=== PATIENT | male | born 1970 ===

== ENCOUNTER 2021-04-25 20:43 | Emergency (ER) | payer SELFPAY ==
[2021-04-25 22:46] VITALS: BP 133/52
[2021-04-25] MEDS ORDERED: ACETAMINOPHEN 325 MG TAB PO ONE (22:50)
[2021-04-25 23:38] LABS: Bacteria,Urine 1+ /HPF (Negative); Bilirubin,Urine NEG (Negative); Blood,Urine SM (Negative); Color,Urine Yellow (Yellow); Mucus,Urine FEW /HPF; Protein,Urine <15 mg/dL mg/dL (Negative); Urobilinogen,Urine < 2.0 mg/dL (<2.0)
[2021-04-25 23:57] LABS: Hematocrit 32.7 % (35.5-45.6); Hemoglobin 10.8 gm/dl (11.8-15.2); Mean Corpuscular HGB Conc 33 % (32-34); Mean Corpuscular Volume 76 fl (84-94); Platelet Count 196 K/mm3 (140-440); Red Blood Count 4.29 M/mm3 (3.65-5.03); Red Cell Distribution Width 16.7 % (13.2-15.2)
[2021-04-26 00:19] LABS: Alanine Aminotransferase 28 units/L (7-56); Albumin 4.1 g/dL (3.9-5); BUN/Creatinine Ratio 21; Blood Urea Nitrogen 21 mg/dL (9-20); Calcium 8.8 mg/dL (8.4-10.2); Hemolysis Index 0
[2021-04-26 04:45] LABS: Anisocytosis 1+; Platelet Estimate Consistent w Auto; Total Cells Counted 100
[2021-04-26] MEDS ORDERED: ALBUTEROL 2.5 MG/3 ML NEBU IH ONE (04:52)
[2021-04-26] MEDS ORDERED: methylPREDNISolone Sod Succinate 125 MG/2 ML INJ IM ONE (04:52)
[2021-04-26] MEDS ORDERED: IPRATROPIUM 0.02% NEBU 2.5 ML IH ONE (04:52)
[2021-04-26] MEDS ORDERED: KETOROLAC 60 MG/2 ML INJ IM ONE (04:53)
--- NOTE | 2021-04-26 05:42 | Emergency Department Report ---
ED General Adult HPI - General Chief complaint: Abdominal Pain Stated complaint: FOOD POSION ABOUT TO PASS OUT Source: patient Mode of arrival: Wheelchair Limitations: No Limitations - History of Present Illness Initial comments: Patient is a 51-year-old -[place] male with a history of morbid obesity, chronic low back pain, hypertension and asthma who presents to the ED with complaint of acute onset persistent diffuse body aches and pains, nasal and sinus congestion, persistent dry cough with wheezing and shortness of breath for the last 2 days. Patient states that he just returned from a trip in [place] and despite using his albuterol inhaler his wheezing and shortness of breath and persistent cough got worse. Patient also states that he noticed that he had hematuria, urinary frequency and urgency and dysuria 24 hours ago and wanted to be evaluated for the same as well. Patient states that he has not been contact with anyone with similar symptoms. Patient denies chest pain, abdominal pain, testicular pain, back pain, fever, chills, nausea and vomiting, diarrhea, dizziness, headache or sore throat. MD Complaint: Shortness of breath, wheezing, asthma exacerbation -: Sudden Severity scale (0 -10): 3 - Related Data Previous Rx's Medication Instructions Recorded Last Taken Type Benzonatate [Tessalon Perles] 100 mg PO Q8HR #30 capsule 04/26/21 Unknown Rx Cetirizine HCl [Zyrtec 10mg tab] 10 mg PO DAILY #30 tablet 04/26/21 Unknown Rx Doxycycline Hyclate 100 mg PO Q12H #28 tablet.dr 04/26/21 Unknown Rx Ibuprofen [Motrin] 800 mg PO Q8HR PRN #30 tablet 04/26/21 Unknown Rx Phenazopyridine [Pyridium] 200 mg PO TID #21 tab 04/26/21 Unknown Rx methylPREDNISolone [Medrol 4MG 4 mg PO DAILY #21 tab.ds.pk 04/26/21 Unknown Rx DOSEPAK (21 tabs)] Allergies Allergy/AdvReac Type Severity Reaction Status Date / Time No Known Allergies Allergy Verified 04/26/21 04:55 ED Review of Systems ROS: Stated complaint: FOOD POSION ABOUT TO PASS OUT Other details as noted in HPI Constitutional: chills, fever, malaise Eyes: denies: eye pain, eye discharge, vision change ENT: congestion. denies: ear pain, throat pain Respiratory: cough, shortness of breath, wheezing Cardiovascular: denies: chest pain, palpitations Endocrine: no symptoms reported Gastrointestinal: denies: abdominal pain, nausea, diarrhea Genitourinary: urgency, dysuria, frequency Musculoskeletal: arthralgia, myalgia. denies: back pain, joint swelling Skin: denies: rash, lesions Neurological: headache. denies: weakness, paresthesias Psychiatric: denies: anxiety, depression Hematological/Lymphatic: denies: easy bleeding, easy bruising ED Past Medical Hx - Past Medical History Previous Medical History?: Yes Hx Hypertension: Yes Hx Asthma: Yes - Surgical History Past Surgical History?: No - Social History Smoking Status: Never Smoker Substance Use Type: None - Medications Home Medications: Home Medications Medication Instructions Recorded Confirmed Last Taken Type Benzonatate [Tessalon Perles] 100 mg PO Q8HR #30 capsule 04/26/21 Unknown Rx Cetirizine HCl [Zyrtec 10mg tab] 10 mg PO DAILY #30 tablet 04/26/21 Unknown Rx Doxycycline Hyclate 100 mg PO Q12H #28 tablet.dr 04/26/21 Unknown Rx Ibuprofen [Motrin] 800 mg PO Q8HR PRN #30 tablet 04/26/21 Unknown Rx Phenazopyridine [Pyridium] 200 mg PO TID #21 tab 04/26/21 Unknown Rx methylPREDNISolone [Medrol 4MG 4 mg PO DAILY #21 tab.ds.pk 04/26/21 Unknown Rx DOSEPAK (21 tabs)] ED Physical Exam - General Limitations: No Limitations General appearance: alert, in no apparent distress - Head Head exam: Present: atraumatic, normocephalic, normal inspection - Eye Eye exam: Present: normal appearance, PERRL, EOMI Pupils: Present: normal accommodation - ENT ENT exam: Present: normal orophraynx, mucous membranes moist, other (Grossly congested nasal passages; palpable frontal sinus tenderness) - Neck Neck exam: Present: normal inspection, full ROM - Respiratory Respiratory exam: Present: normal lung sounds bilaterally. Absent: respiratory distress, wheezes, rales, rhonchi, chest wall tenderness, accessory muscle use, decreased breath sounds, prolonged expiratory - Cardiovascular Cardiovascular Exam: Present: regular rate, normal rhythm, normal heart sounds. Absent: systolic murmur, diastolic murmur, rubs, gallop - GI/Abdominal GI/Abdominal exam: Present: soft, normal bowel sounds. Absent: tenderness, guarding, rebound, hyperactive bowel sounds, hypoactive bowel sounds, organomegaly - Extremities Exam Extremities exam: Present: normal inspection, full ROM, normal capillary refill - Back Exam Back exam: Present: normal inspection - Neurological Exam Neurological exam: Present: alert, oriented X3, CN II-XII intact, normal gait, reflexes normal - Psychiatric Psychiatric exam: Present: normal affect, normal mood - Skin Skin exam: Present: warm, dry, intact, normal color. Absent: rash ED Course Vital Signs 04/25/21 04/26/21 04/26/21 22:37 05:13 05:48 Temperature 100.8 F H 100 F H Pulse Rate 80 98 H Pulse Rate [ 93 H Throughout] Respiratory 22 18 Rate Respiratory 20 Rate [ Throughout] Blood Pressure 133/52 O2 Sat by Pulse 96 100 Oximetry ED Medical Decision Making - Lab Data Result diagrams: 04/25/21 23:11 04/25/21 23:11 - Radiology Data [facility] [address] [place] [address] XRay Report Signed Patient: HARRY TYLER MR#: [id number] : 1970 Acct:[id number] Age/Sex: 51 / M ADM Date: 04/25/21 Loc: ED Attending Dr: Ordering Physician: CURLY FINCH Date of Service: 04/26/21 Procedure(s): XR chest 1V ap Accession Number(s): [id number] cc: CURLY FINCH Fluoro Time In Minutes: CHEST 1 VIEW 04/26/2021 4:40 AM INDICATION / CLINICAL INFORMATION: COUGH, WHEEZING. COMPARISON: None available. FINDINGS: SUPPORT DEVICES: None. HEART / MEDIASTINUM: No significant abnormality. LUNGS / PLEURA: No significant pulmonary or pleural abnormality. No pneumothorax. ADDITIONAL FINDINGS: Left shoulder arthroplasty. IMPRESSION: 1. No acute findings. Signer Name: Ignacio Jorgensen MD Signed: 04/26/2021 5:49 AM Workstation Name: [id number] Transcribed By: PERRI Dictated By: Charles Jorgensen MD Electronically Authenticated By: Charles Jorgensen MD Signed Date/Time: 04/26/21548 DD/ 8 TD/TT: Print - Medical Decision Making This is a 51-year-old -[place] male with a history of morbid obesity, chronic low back pain, hypertension and asthma who presents to the ED with complaint of acute onset persistent diffuse body aches and pains, nasal and sinus congestion, persistent dry cough with wheezing and shortness of breath for the last 2 days. Patient states that he just returned from a trip in [place] and despite using his albuterol inhaler his wheezing and shortness of breath and persistent cough got worse. Patient also states that he noticed that he had hematuria, urinary frequency and urgency and dysuria 24 hours ago and wanted to be evaluated for the same as well. Patient states that he has not been contact with anyone with similar symptoms. In the ED, patient is alert and oriented x3 and is not in any distress. Patient is however febrile with a fever 100.8 F, but he is normotensive, with oxygen saturation of 96% in room air. Lab test results were reviewed and showed acute leukocytosis of 13,900 and BUN of 21 and mild hyponatremia 135 mmol/L. Urinalysis is unremarkable. Chest x-ray shows no acute cardiopulmonary abnormalities or pneumonitis. Patient was treated in the ED for pain and also given albuterol and ipratropium nebulizer in the ED as well as Solu-Medrol 125 mg intramuscular injection. On reevaluation, patient's fever resolved with medications, wheezing also resolved and patient is hemodynamically stable, and is oxygen saturation is 100% in room air. Patient was discharged home on medications and advised to follow-up with his primary care physician in 5 to 7 days for reevaluation. Patient is advised return to the ED immediately if symptoms get worse. - Differential Diagnosis Asthma; bronchitis; sinusitis; URI; UTI; pneumonia; viral syndrome Critical care attestation.: If time is entered above; I have spent that time in minutes in the direct care of this critically ill patient, excluding procedure time. ED Disposition Clinical Impression: Acute bronchitis with asthma with acute exacerbation, Dysuria, Acute upper respiratory infection Acute frontal sinusitis, unspecified Qualifiers: Recurrence: non-recurrent Qualified Code(s): J01.10 - Acute frontal sinusitis, unspecified Disposition: DC-01 TO HOME OR SELFCARE Is pt being admited?: No Does the pt Need Aspirin: No Condition: Stable Instructions: Acute Bronchitis (ED), Sinusitis, Adult, [id number], Upper Respiratory Infection, Adult, [id number], Acute Bronchitis, Adult, Easy-to- Read, Asthma, Adult, [id number] Additional Instructions: All lab test results were reviewed and are all nonactionable. Chest x-ray shows no acute cardiopulmonary abnormalities or pneumonitis. Urinalysis is unremarkable. Therefore take medication with food, drink plenty of fluids and follow-up with your primary care physician in 7 to 10 days for reevaluation. Return to the ED immediately if symptoms get worse. Prescriptions: Doxycycline Hyclate 100 mg PO Q12H #28 tablet.dr methylPREDNISolone [Medrol 4MG DOSEPAK (21 tabs)] 4 mg PO DAILY #21 tab.ds.pk Ibuprofen [Motrin] 800 mg PO Q8HR PRN #30 tablet PRN Reason: Pain , Severe (7-10) Phenazopyridine [Pyridium] 200 mg PO TID #21 tab Benzonatate [Tessalon Perles] 100 mg PO Q8HR #30 capsule Cetirizine HCl [Zyrtec 10mg tab] 10 mg PO DAILY #30 tablet Referrals: [facility] [Provider Group] - 3-5 Days Time of Disposition: 05:59 Print Language: CITIZEN OF [place]
--- NOTE | 2021-04-26 05:54 | XRay Report ---
CHEST 1 VIEW 04/26/2021 4:40 AM INDICATION / CLINICAL INFORMATION: COUGH, WHEEZING. COMPARISON: None available. FINDINGS: SUPPORT DEVICES: None. HEART / MEDIASTINUM: No significant abnormality. LUNGS / PLEURA: No significant pulmonary or pleural abnormality. No pneumothorax. ADDITIONAL FINDINGS: Left shoulder arthroplasty. IMPRESSION: 1. No acute findings. Signer Name: Ignacio Jorgensen MD Signed: 04/26/2021 5:49 AM Workstation Name: [id number]
== END 2021-04-26 06:15 | disposition home or self-care (01) ==
LOC: ED 20:43
DX: J40 Bronchitis, not specified as acute or chronic (principal); J01.10 Acute frontal sinusitis, unspecified; I10 Essential (primary) hypertension
CPT/HCPCS: 36415; 71045; 80053; 81001; 85007; 85025; 94644; 96372; 99284; J1885; J2930